=== PATIENT | female | born 1990 | race Caucasian/White ===

== ENCOUNTER 2017-05-28 12:45 | Inpatient (IN) | payer OTHER ==
[2017-05-28 14:21] LABS: BASO % 0.3 % (0-2.0); EOS % 0.3 % (0-4.5); HEMATOCRIT 35.6 % (32.4-45.2); HEMOGLOBIN 12.1 GM/dL (10.7-15.3); LYMPH % 20.1 % (8-40); MCH 32.7 pg (25.7-33.7); MEAN CELL VOLUME 96.2 fl (80-96); MEAN PLT VOLUME 7.9 fl (7.5-11.1); MONO % 9.1 % (3.8-10.2); NEUT % 70.2 % (42.8-82.8); PLATELET COUNT 209 K/MM3 (134-434); RBC 3.71 M/mm3 (3.60-5.2); RDW 13.4 % (11.6-15.6); WHITE BLOOD COUNT 8.7 K/mm3 (4.0-10.0)
[2017-05-28] MEDS ORDERED: TUBERCULIN PPD 5 TU/0.1ML SYRINGE (IN PATIENT USE ONLY) ID ONE (14:30)
[2017-05-28] MEDS ORDERED: DINOPROSTONE 10 MG VAGINAL SUPPOSITORY VG ONE (14:30)
[2017-05-28 14:37] LABS: INR 0.95 (0.82-1.09); PROTHROMBIN TIME (PATIENT) 10.7 SEC (9.98-11.88)
[2017-05-28 14:39] LABS: ACTIVATED PTT 28.1 SECONDS (26.9-34.4)
[2017-05-28 14:44] LABS: ANION GAP 11 (8-16); BLOOD UREA NITROGEN 8 mg/dL (7-18); CALCIUM 8.6 mg/dL (8.5-10.1); CHLORIDE 109 mmol/L (98-107); CO2 21 mmol/L (21-32); CREATININE 0.4 mg/dL (0.55-1.02); GLUCOSE,RANDOM 114 mg/dL (74-106); SODIUM 141 mmol/L (136-145)
[2017-05-28 15:34] VITALS: BMI 33.6
[2017-05-28] MEDS: DEXTROSE 5%-LACTATED RINGERS 1,000 ML IV SCH (18:09)
[2017-05-29] MEDS ORDERED: OXYTOCIN 30 UNITS in 0.9% NS 30 UNIT/500 ML INFUS.BAG IVPB SCH (05:00)
[2017-05-29] MEDS: DEXTROSE 5%-LACTATED RINGERS 1,000 ML IV SCH (05:05)
[2017-05-29] MEDS ORDERED: OXYTOCIN 30 UNITS in 0.9% NS 30 UNIT/500 ML INFUS.BAG IVPB ONE (05:29)
[2017-05-29] MEDS ORDERED: ELECTROLYTE-148 SOLN 1,000 ML IV SCH (08:30)
[2017-05-29] MEDS ORDERED: FENTANYL/BUPIVACAINE/NS/PF - PCEA - 50 ML DISP.SYRIN EP ONE ×2 (08:39→14:27)
--- NOTE | 2017-05-29 08:47 | HP ---
Past Medical History - Admission Chief Complaint: Elective induction of labor History of Present Illness: 26 yo , @ 40.5 weeks gestation, sent from clinic for induction of labor. She denies any contractions pain. History Source: Patient Limitations to Obtaining History: No Limitations - Past Medical History ...: 1 ...Para: 0 ...Term: 0 ...: 0 ...Spon : 0 ...Induced : 0 ...Multiple Gestation: 0 ...LMP: 08/27/16 ... Weeks Gestation by Dates: 39.1 ...EDC by Dates: 06/03/17 ...EDC by Sono: 05/23/17 - Past Surgical History Past Surgical History: Yes: None Hx Myomectomy: No Hx Transabdominal Cerclage: No - Smoking History Smoking history: Never smoked Have you smoked in the past 12 months: No - Alcohol/Substance Use Hx Alcohol Use: No - Social History Usual Living Arrangement: Yes: With Significant Other History of Recent Travel: No Home Medications - Allergies Allergies/Adverse Reactions: Allergies Allergy/AdvReac Type Severity Reaction Status Date / Time No Known Allergies Allergy Unverified 05/28/17 18:51 - Home Medications Home Medications: Ambulatory Orders Ferrous Sulfate [Feosol] 325 mg PO DAILY 05/28/17 Vitamins (Sjr) - 1 tab PO DAILY 05/28/17 Family Disease History - Family Disease History Family History: Unremarkable Review of Systems - Review of Systems Constitutional: reports: No Symptoms Eyes: reports: No Symptoms HENT: reports: No Symptoms Neck: reports: No Symptoms Cardiovascular: reports: No Symptoms Respiratory: reports: No Symptoms Gastrointestinal: reports: No Symptoms Genitourinary: reports: No Symptoms Breasts: reports: No Symptoms Reported Musculoskeletal: reports: No Symptoms Integumentary: reports: No Symptoms Neurological: reports: No Symptoms Endocrine: reports: No Symptoms Hematology/Lymphatic: reports: No Symptoms Pain Intensity: 0 Physical Exam - Maternity Vital Signs: Vital Signs Temperature 99.1 F 05/29/17 08:00 Pulse Rate 76 05/29/17 08:00 Respiratory Rate 20 05/29/17 08:00 Blood Pressure 125/68 05/29/17 08:00 O2 Sat by Pulse Oximetry (%) Constitutional: Yes: Well Nourished Eyes: Yes: Conjunctiva Clear HENT: Yes: Atraumatic Neck: Yes: Supple Cardiovascular: Yes: Regular Rate and Rhythm Lungs: Clear to auscultation - Abdominal Exam/OB Number of Fetuses: Single Presentation: Vertex Contractions: No - Vaginal Exam/OB Vaginal Bleediing: No - Physical Exam ...Motor Strength: WNL Psychiatric: Yes: Alert, Oriented - Labs Lab Results: CBC, BMP 05/28/17 14:00 05/28/17 14:00 Problem List - Problems (1) Post-dates Code(s): O48.0 - POST-TERM Assessment/Plan Postdates Cervidil induction Anticipate
--- NOTE | 2017-05-29 08:52 | PN ---
Progress Note (short form) - Note Progress Note: Patient re-evaluated She's status post cervidil induction. She c/o mild discomfort FHR : Reassuring [place] : + regular contractions VE : /-1 AROM ( clear ) A/P : Postdates Status post cervidil induction Continue Pitocin augmentation Analgesia as needed Problem List - Problems (1) Post-dates Code(s): O48.0 - POST-TERM
[2017-05-29] MEDS: ELECTROLYTE-148 SOLN 1,000 ML IV SCH ×2 (09:00→11:53)
[2017-05-29] MEDS ORDERED: FENTANYL/BUPIVACAINE/NS/PF - PCEA - 50 ML DISP.SYRIN EP SCH (09:10)
[2017-05-29] MEDS ORDERED: NALOXONE HCL 0.4 MG/ML VIAL IVPUSH PRN (09:27)
[2017-05-29] MEDS ORDERED: ACETAMINOPHEN 325 MG TABLET (FP) ONE ×2 (14:25→19:43)
[2017-05-29] MEDS ORDERED: ACETAMINOPHEN 325 MG TABLET (FP) PO ONE (14:45)
[2017-05-29] MEDS ORDERED: BUPIVACAINE HCL/PF 0.25% (2.5MG/ML) 10 ML VIAL ONE (15:14)
[2017-05-29] MEDS ORDERED: OXYTOCIN 20 UNITS in 0.9% NS 20 UNIT/1,000 ML INFUS.BAG IV ONE ×2 (15:46→19:36)
[2017-05-29] MEDS: CEFAZOLIN 1 GM/D5W 1 GM/50 ML BAG IVPB ONE ×2 (16:20→18:41)
[2017-05-29] MEDS ORDERED: LIDOCAINE HCL 1% PRESERVATIVE FREE - 30ML VIAL ONE (16:28)
[2017-05-29] MEDS ORDERED: ceFAZolin SODIUM 1 GM VIAL ONE (16:42)
[2017-05-29] MEDS ORDERED: ACETAMINOPHEN 325 MG TABLET (FP) PO PRN (18:09)
[2017-05-29] MEDS ORDERED: BISACODYL 10 MG SUPP.RECT RC PRN (18:09)
[2017-05-29] MEDS ORDERED: BENZOCAINE 28 GM HEMORRHOIDAL OINTMENT TP PRN (18:09)
[2017-05-29] MEDS ORDERED: METHYLERGONOVINE MALEATE 0.2 MG/1 ML AMP IM PRN (18:09)
[2017-05-29] MEDS ORDERED: WITCH HAZEL 50% (TUCKS) 40 PAD/JAR PAD TP PRN (18:09)
[2017-05-29] MEDS ORDERED: BENZOCAINE 20% 57 GM BOTTLE TP PRN (18:09)
[2017-05-29] MEDS ORDERED: CEFAZOLIN 1 GM in DEXTROSE 5%-WATER - 50 ML IVPB ONE (18:11)
[2017-05-29] MEDS ORDERED: OXYTOCIN 20 UNITS in 0.9% NS 20 UNIT/1,000 ML INFUS.BAG IV SCH (18:15)
--- NOTE | 2017-05-29 18:16 | PN ---
Delivery - Delivery Vaginal Delivery: Spontaneous Type of Anesthesia: Local, Epidural Episiotomy/Laceration: Midline EBL (cc): 300 Delivery, Single - Stages of Labor Date 1st Stage Initiatied: 05/29/17 Time 1st Stage Initiated: 07:00 Date 2nd Stage Initiated: 05/29/17 Time 2nd Stage Initiated: 16:10 Date of Delivery: 05/29/17 Time of Delivery: 17:01 Time Placenta Delivered: 17:05 - Condition of Yarn Sizer/Md Urologist Present: No Infant Gender: Female Weight: 7 lb 12 oz Position: Right, OA Total Hours ROM (Hrs/Mins): 8hrs 35min - 1 Minute Total Score: 6 5 Minutes Total Score: 8 - Feeding Plan Initial Plan: Exclusive throughout hospitalization Remarks - Remarks Remarks: Normal spontaneous vaginal delivery of a live infant girl over midline episiotomy. Nuchal cord x 1 clamped and cut. Placenta expelled spontaneously intact. EBL 300cc Episiotomy repaired with 2.0 Chromic and 2.0 Biosyn.
[2017-05-29] MEDS ORDERED: IBUPROFEN 600 MG TABLET (FP) PO ONE (19:43)
[2017-05-29] MEDS: IBUPROFEN 600 MG TABLET (FP) PO PRN (19:45)
[2017-05-30] MEDS: IBUPROFEN 600 MG TABLET (FP) PO PRN (01:17)
--- NOTE | 2017-05-30 08:21 | PN ---
Post Progress Note - Subjective Subjective: perineal soreness. bleeding is less Post Day: 1 Type of Delivery: Vital Signs: Vital Signs Temperature 98.0 F 05/30/17 05:58 Pulse Rate 75 05/30/17 05:58 Respiratory Rate 20 05/30/17 05:58 Blood Pressure 108/59 05/30/17 05:58 O2 Sat by Pulse Oximetry (%) 100 05/29/17 18:30 Breast Exam: Yes: Soft, Other (pumping milk ). No: Engorged Uterus: Yes: Fundus Firm, Fundus below umbilicus, Non-tender Lochia, amount: Moderate Extremities: Yes: Calves non-tender, Edema Perineum: Yes: Episiotomy (healing ) Activity: Ambulating - Labs Labs: CBC WBC 8.7 K/mm3 (4.0-10.0) 05/28/17 14:00 RBC 3.71 M/mm3 (3.60-5.2) 05/28/17 14:00 Hgb 12.1 GM/dL (10.7-15.3) 05/28/17 14:00 Hct 35.6 % (32.4-45.2) 05/28/17 14:00 MCV 96.2 fl (80-96) H 05/28/17 14:00 MCH 32.7 pg (25.7-33.7) 05/28/17 14:00 MCHC 34.0 g/dl (32.0-36.0) 05/28/17 14:00 RDW 13.4 % (11.6-15.6) 05/28/17 14:00 Plt Count 209 K/MM3 (134-434) 05/28/17 14:00 MPV 7.9 fl (7.5-11.1) 05/28/17 14:00 Neutrophils % 70.2 % (42.8-82.8) 05/28/17 14:00 Lymphocytes % 20.1 % (8-40) 05/28/17 14:00 Monocytes % 9.1 % (3.8-10.2) 05/28/17 14:00 Eosinophils % 0.3 % (0-4.5) 05/28/17 14:00 Basophils % 0.3 % (0-2.0) 05/28/17 14:00 Assessment/Plan stable plan cbc today baby in Nicu discharge tomorrow.
[2017-05-30 09:04] LABS: BASO % 0.1 % (0-2.0); EOS % 0.3 % (0-4.5); HEMATOCRIT 24.2 % (32.4-45.2); HEMOGLOBIN 8.2 GM/dL (10.7-15.3); LYMPH % 11.5 % (8-40); MCH 32.7 pg (25.7-33.7); MCHC 33.7 g/dl (32.0-36.0); MEAN CELL VOLUME 96.9 fl (80-96); MEAN PLT VOLUME 7.8 fl (7.5-11.1); MONO % 9.9 % (3.8-10.2); NEUT % 78.2 % (42.8-82.8); PLATELET COUNT 164 K/MM3 (134-434); RBC 2.49 M/mm3 (3.60-5.2); RDW 13.1 % (11.6-15.6); WHITE BLOOD COUNT 16.7 K/mm3 (4.0-10.0)
[2017-05-30] MEDS: PRENATAL VITAMINS W/ FOLIC ACID TABLET (FP) PO SCH (09:13)
[2017-05-30] MEDS: FERROUS SO4 325 MG TABLET (FP) PO SCH ×3 (09:13→16:41)
[2017-05-30] MEDS ORDERED: SENNOSIDES/DOCUSATE COMBO (SENNA PLUS) TABLET (UD) PO PRN (22:00)
[2017-05-31] MEDS ORDERED: CEFAZOLIN 1 GM/D5W 1 GM/50 ML BAG IVPB ONE (05:07)
--- NOTE | 2017-05-31 05:12 | DS ---
Physical Exam-[employer] Vital Signs: Vital Signs Temperature 98.4 F 05/30/17 21:00 Pulse Rate 100 H 05/30/17 21:00 Respiratory Rate 20 05/30/17 21:00 Blood Pressure 126/77 05/30/17 21:00 O2 Sat by Pulse Oximetry (%) 100 05/29/17 18:30 Constitutional: Yes: Well Nourished Eyes: Yes: Conjunctiva Clear HENT: Yes: Atraumatic Neck: Yes: Supple, Trachea Midline Cardiovascular: Yes: Regular Rate and Rhythm Respiratory: Yes: Regular, CTA Bilaterally Gastrointestinal: Yes: Normal Bowel Sounds Vaginal Exam: Yes: Other (Healing episiotomy) Uterus: Yes: Firm ....Post : Yes: Uterus firm, Moderate lochia serosa Neurological: Yes: Alert, Oriented ...Motor Strength: WNL Psychiatric: Yes: Alert, Oriented Labs: CBC, BMP 05/30/17 08:00 05/28/17 14:00 Delivery - Delivery Vaginal Delivery: Spontaneous Type of Anesthesia: Local, Epidural Episiotomy/Laceration: Midline EBL (cc): 300 Delivery, Single - Stages of Labor Date 1st Stage Initiatied: 05/29/17 Time 1st Stage Initiated: 07:00 Date 2nd Stage Initiated: 05/29/17 Time 2nd Stage Initiated: 16:10 Date of Delivery: 05/29/17 Time of Delivery: 17:01 Time Placenta Delivered: 17:05 - Condition of Film Inspector/Database Dba Present: No Gender: Female Weight: 7 lb 12 oz Position: Right, OA Total Hours ROM (Hrs/Mins): 8hrs 35min - 1 Minute Total Score: 6 5 Minutes Total Score: 8 - Feeding Plan Initial Plan: Exclusive throughout hospitalization Discharge Summary Reason For Visit: INDUCTION OF LABOR Current Active Problems Post-dates (Acute) Status post normal vaginal delivery (Acute) Procedures: Principal: Normal spontaneous vaginal delivery Hospital Course: Patient is status post vaginal delivery. She received antibiotic due to elevated WBC. Condition: Good - Instructions Diet, Activity, Other Instructions: Regular diet No douching, no sexual intercourse x 6 weeks F/U in clinic in 6 weeks Disposition: HOME - Home Medications Comprehensive Discharge Medication List: Ambulatory Orders Ferrous Sulfate [Feosol] 325 mg PO DAILY 05/28/17 Vitamins (Sjr) - 1 tab PO DAILY 05/28/17
[2017-05-31] MEDS: FERROUS SO4 325 MG TABLET (FP) PO SCH ×2 (08:00→12:03)
[2017-05-31] MEDS: PRENATAL VITAMINS W/ FOLIC ACID TABLET (FP) PO SCH (10:00)
[2017-05-31 11:44] VITALS: BP 118/78; PULSE 88; TEMP 98.2
--- NOTE | 2017-06-01 13:10 | PATH ---
Surgical Pathology Report Patient Name: TRE NÚÑEZ Med. Rec. 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 Specimen(s) Received PLACENTA Clinical History , 40.5 weeks, post date induction, normal vaginal delivery with maternal temperature in labor, 6 8 Final Diagnosis PLACENTA, DELIVERY: FOCALLY DISRUPTED THIRD TRIMESTER PLACENTA WITH ACUTE CHORIOAMNIONITIS AND 3 VESSEL UMBILICAL CORD. Electronically Signed Sanju Berrios M.D. Gross Description The specimen is received fresh labeled placenta and is a 775 gram, 20 x 15 x 3 cm. placenta with attached membranes and umbilical cord. The attached membranes are paul-mathews translucent and insert marginally. The umbilical cord measures 21 cm. in length and averages 0.7 cm. in diameter. The cord inserts eccentrically, 6 cm. to the nearest margin. No true knots or strictures are identified. Cut surface of the umbilical cord reveals 3 vessels. The surface is humphries-blue with minimal fibrin deposition and appropriate caliber vessels. The maternal surface is red-brown with focal defects. Sectioning reveals red-brown, spongy parenchyma. No lesions are identified. Airport Operations Officer sections are submitted in three cassettes as follows: 1- membrane rolls and umbilical cord; 2-3- full thickness sections of placenta. ROOSEVELT/05/31/2017 deja/05/31/2017
== END 2017-05-31 13:35 | disposition home or self-care (01) | DRG 560 ==
LOC: JLDR 12:45 → J3W 05-29 19:58
PROVIDERS: ADMIT Obstetrics & Gynecology; ATTEND Obstetrics & Gynecology
PROC: 0W8NXZZ Division of Female Perineum, External Approach (ICD-10-PCS; principal; 2017-05-29)
PROC: 10E0XZZ Delivery of Products of Conception, External Approach (ICD-10-PCS; 2017-05-29)
PROC: 3E0P7VZ Introduction of Hormone into Female Reproductive, Via Natural or Artificial Opening (ICD-10-PCS; 2017-05-29)
DX: O48.0 Post-term pregnancy (principal); Z3A.40 40 weeks gestation of pregnancy; Z37.0 Single live birth
CPT/HCPCS: 36415; 59409; 80048; 85025; 85610; 85730; 86593; 86850; 86900; 86901; 88307-TC

== ENCOUNTER 2024-02-26 13:20 | Inpatient (IN) | payer OTHER ==
[2024-02-26 15:16] VITALS: BMI 34.5
[2024-02-26 15:41] LABS: BASO % 0.1 % (0-2.0); EOS % 0.1 % (0-4.5); HEMATOCRIT 39.1 % (32.4-45.2); HEMOGLOBIN 12.7 GM/dL (10.7-15.3); MCH 31.4 pg (25.7-33.7); MCHC 32.4 g/dl (32.0-36.0); MEAN PLT VOLUME 8.3 fl (7.5-11.1); MONO % 5.9 % (3.8-10.2); NEUT % 74.9 % (42.8-82.8); PLATELET COUNT 227 10^3/uL (134-434); RBC 4.03 M/mm3 (3.60-5.2); RDW 13.4 % (11.6-15.6); WHITE BLOOD COUNT 11.4 K/mm3 (4.0-10.0)
[2024-02-26] MEDS ORDERED: LIDOCAINE HCL 1% PRESERVATIVE FREE - 30ML VIAL ONE (15:42)
[2024-02-26] MEDS ORDERED: OXYTOCIN 20 UNITS in 0.9% NS 20 UNIT/1,000 ML INFUS.BAG IV ONE (15:42)
[2024-02-26 15:50] LABS: INR 0.89 (0.83-1.09); PROTHROMBIN TIME (PATIENT) 10.3 SEC (9.7-13.0)
[2024-02-26 15:52] LABS: ACTIVATED PTT 31.3 SECONDS (25.2-36.5)
[2024-02-26 16:01] LABS: POTASSIUM 4.1 mmol/L (3.5-5.1)
[2024-02-26 16:03] LABS: BLOOD UREA NITROGEN 9.4 mg/dL (7-18)
[2024-02-26 16:06] LABS: CREATININE 0.6 mg/dL (0.55-1.3)
[2024-02-26] MEDS: OXYTOCIN 20 UNITS in 0.9% NS 20 UNIT/1,000 ML INFUS.BAG IV SCH (16:15)
[2024-02-26] MEDS ORDERED: BISACODYL 10 MG SUPP.RECT RC PRN (16:32)
[2024-02-26] MEDS ORDERED: BENZOCAINE 28 GM HEMORRHOIDAL OINTMENT TP PRN (16:32)
[2024-02-26] MEDS ORDERED: ACETAMINOPHEN 325 MG TABLET (FP) PO PRN (16:32)
[2024-02-26] MEDS ORDERED: WITCH HAZEL 50% (TUCKS) 40 PAD/JAR PAD TP PRN (16:32)
[2024-02-26] MEDS ORDERED: BENZOCAINE 20% 57 GM BOTTLE TP PRN (16:32)
[2024-02-26] MEDS ORDERED: IBUPROFEN 600 MG TABLET (FP) PO ONE (17:07)
[2024-02-26] MEDS: IBUPROFEN 600 MG TABLET (FP) PO PRN (17:09)
[2024-02-26] MEDS: METHYLERGONOVINE MALEATE 0.2 MG/1 ML AMP IM PRN (17:57)
[2024-02-27 07:56] LABS: BASO % 0.2 % (0-2.0); EOS % 0.2 % (0-4.5); HEMOGLOBIN 10.5 GM/dL (10.7-15.3); LYMPH % 30.5 % (8-40); MCH 32.1 pg (25.7-33.7); MEAN CELL VOLUME 94.6 fl (80-96); MEAN PLT VOLUME 8.5 fl (7.5-11.1); MONO % 8.8 % (3.8-10.2); NEUT % 60.3 % (42.8-82.8); PLATELET COUNT 196 10^3/uL (134-434); RBC 3.28 M/mm3 (3.60-5.2); RDW 13.4 % (11.6-15.6); WHITE BLOOD COUNT 9.5 K/mm3 (4.0-10.0)
[2024-02-27 21:35] VITALS: RESP 18
[2024-02-27] MEDS ORDERED: SENNOSIDES/DOCUSATE COMBO (SENNA PLUS) TABLET (UD) PO PRN (22:00)
[2024-02-28 09:44] VITALS: BP 122/79; PULSE 80; TEMP 97.6
== END 2024-02-28 15:15 | disposition home or self-care (01) | DRG 560 ==
LOC: JDEL 13:20 → JLDR 14:10 → J3W 20:42
PROVIDERS: ADMIT Obstetrics & Gynecology Obstetrics; ATTEND Obstetrics & Gynecology Obstetrics
PROC: 10E0XZZ Delivery of Products of Conception, External Approach (ICD-10-PCS; principal; 2024-02-26)
PROC: 0HQ9XZZ Repair Perineum Skin, External Approach (ICD-10-PCS; 2024-02-26)
DX: O70.0 First degree perineal laceration during delivery (principal); Z3A.39 39 weeks gestation of pregnancy; Z37.0 Single live birth
CPT/HCPCS: 36415; 59409; 80048; 85025; 85610; 85730; 86780; 86850; 86900; 86901